=== PATIENT | male | born 1980 | race Caucasian/White ===

== ENCOUNTER 2017-08-22 20:45 | Emergency (ER) | payer BC ==
[~2017-08-22] VITALS: Ht 172.7 cm; Wt 77.1 kg
[2017-08-22 20:48] VITALS: BP 104/69
[2017-08-22] MEDS ORDERED: SUMA6VIA SQ (20:52)
[2017-08-22] MEDS ORDERED: SUMA50TA PO (20:52)
[2017-08-22] MEDS ORDERED: CLON0.5T PO (20:52)
[2017-08-22] MEDS ORDERED: clonazePAM 1 MG TABLET PO ONE (21:00)
[2017-08-22] MEDS ORDERED: clonazePAM 1 MG TABLET ONE (21:22)
== END 2017-08-22 21:26 | disposition home or self-care (01) ==
LOC: ER 20:47
DX: F41.9 Anxiety disorder, unspecified (principal); G43.909 Migraine, unspecified, not intractable, without status migrainosus
CPT/HCPCS: A4606; Z7610